=== PATIENT | female | born 1965 | race Caucasian/White ===

== ENCOUNTER 2017-04-29 11:00 | Inpatient (IN) | payer OTHER ==
[~2017-04-29] VITALS: Ht 170.2 cm; Wt 94.1 kg
--- NOTE | ~2017-04-29 | OR ---
PATIENT'S NAME: CELESTINO RIVERS [facility] AGE: 51 Y [address] ROOM: [place] [address] LOCATION: [facility] ADMIT DATE: 05/15/2017 OR/Procedure Report DISCHARGE DATE: FAMILY PHYSICIAN: Wes Cantu MD ATTENDING PHYSICIAN: RACHELE LÓPEZ SURGEON: Rachele López MD INSPECTOR BALANCE BRIDGE: Renan St PA-C DATE OF PROCEDURE: 05/15/2017 ORTHOPEDIC OPERATIVE NOTE PREOPERATIVE DIAGNOSIS: Left primary end-stage post-traumatic arthritis of the knee. POSTOPERATIVE DIAGNOSIS: Left primary end-stage post-traumatic arthritis of the knee. PROCEDURES PERFORMED: 1. Left total knee arthroplasty with computer-aided navigation. 2. Removal of deep buried hardware from proxmial tibia from previous surgery >30 years ago. ANESTHESIA: Spinal with peripheral nerve blocks. ESTIMATED BLOOD LOSS: Minimal. FLUIDS: See Anesthesia report. TOURNIQUET: Left proximal thigh at 250 mmHg. SPECIMENS: Removed hardware. COMPLICATIONS: None. DISPOSITION: Stable in PACU. COUNTS: All counts were correct. IMPLANTS: Blodgett Triathlon left total knee arthroplasty size 4 tibia, size 3 femur, size 32 asymmetric patella, size 11 polyethylene, and antibiotic Simplex bone cement. INDICATIONS: Ms. Rivers is a pleasant 51-year-old female, who underwent the noted procedures above. The risks, benefits, and alternatives pursuing a surgical intervention were discussed with the patient in detail. She elected PATIENT'S NAME: CELESTINO RIVERS [facility] AGE: 51 Y [address] ROOM: [place] [address] LOCATION: [facility] ADMIT DATE: 05/15/2017 OR/Procedure Report DISCHARGE DATE: FAMILY PHYSICIAN: Wes Cantu MD ATTENDING PHYSICIAN: RACHELE LÓPEZ to proceed with surgery as noted above. Anesthesia was consulted for their perioperative evaluation of the patient. I marked the patient's left knee indicating correct surgical site. DESCRIPTION OF PROCEDURE: The patient was brought from the holding area to the operating room. A time-out was performed. Spinal anesthesia with peripheral nerve blocks was administered. Antibiotic prophylaxis was administered. The left lower extremity was then prepped and draped in a sterile fashion. I turned my attention to the left knee. The patient had a previous surgical incision that I traced out to use for her anterior arthrotomy. An Esmarch was used to exsanguinate the limb, and the tourniquet was inflated to 250 mmHg. Using a #10 blade knife, I made incision through skin and subcutaneous tissue down to the medial capsule to the joint. I removed the anterior and posterior cruciate ligaments in the medial and lateral menisci. There were advanced degenerative changes noted in the joint. There was retained hardware at the medial aspect of the tibia of metallic staple. Using an osteotome and mallet along with a rongeur, I removed the hardware and sent for specimen. I then turned my attention to the distal femur. Using computer-aided navigation, I made my distal femoral cut. I then turned my attention to the tibia. I performed a medial soft tissue release. I then used a computer- aided navigation to make my proximal tibial cut. I measured my box alignment and it was satisfactory. I turned my attention back to the distal femur. I finished my distal femur with the cutting block using oscillating saw. I turned my attention back to the proximal tibia, sized it and drilled for, measured and placed the trial components. With the trial components in place, I took the knee through range of motion and found it to be stable. I then subsequently resurfaced the patella. I took the knee through range of motion with the patellar button in place and found the patella to track well. Range of motion of the knee was 0 to 130 degrees. All the trial componentry was removed. The knee was copiously irrigated with a normal sterile saline solution. The bony surfaces were dried and prepped. The cement was mixed, and then subsequently beginning with the tibia, I cemented the component into place. I then turned my attention to the distal femur and cemented the distal femoral component in place. I placed a size 11 trial polyethylene and found that to be stable. The knee was brought out to full extension and then the patellar button was cemented into place. After PATIENT'S NAME: CELESTINO RIVERS [facility] AGE: 51 Y [address] ROOM: [address] [address] LOCATION: [facility] ADMIT DATE: 05/15/2017 OR/Procedure Report DISCHARGE DATE: FAMILY PHYSICIAN: eWs Cantu MD ATTENDING PHYSICIAN: RACHELE LÓPEZ the cement cured, all the excess cement was removed and the knee was copiously irrigated with normal sterile saline solution again. The collaterals were stable. Range of motion of the knee was 0 to approximately 130 degrees of flexion. The capsule was approximated using a #2 Stratafix barbed suture. The subcutaneous tissue was approximated using 0 Vicryl followed by 2-0 Vicryl suture and harmeet for the skin. The tourniquet was let down, the limb reperfused well. The patient was then transferred from the operating room table onto the stretcher and brought to the recovery room in stable condition. There were no intraoperative complications noted. Of note, my PA, Renan St PA-C, played an integral role in the intraoperative care of this patient. This included preoperative positioning, intraoperative expert retraction, and closing and dressing functions. IMPRESSION: The patient is status post the noted procedures above. PLAN: The patient will be weightbearing as tolerated on the left lower extremity. She will be admitted to the hospital. Postoperative antibiotics administered per routine. Lovenox will be administered for DVT prophylaxis. Physical Therapy and Occupational Therapy will be consulted for early ambulation and prevention of deconditioning. The Hospitalist Service will manage the patient's concomitant medical comorbidities. I will continue to follow the patient closely in the postoperative period. MD SADIA HOWARD/nash /[id number] d: 05/15/172116 t: 05/19/17 1405, OPERATIVE SUMMARY
[~2017-04-29 11:00] MED LIST: TRI-SPRINTEC T1 EACH PO
[2017-05-15] MEDS ORDERED: OMEPRAZOLE40 MG PO (06:46)
[2017-05-17] MEDS ORDERED: TYLENOL EXTRA500 MG PO (10:06)
[2017-05-17] MEDS ORDERED: COLACE100 MG PO (10:06)
[2017-05-17] MEDS ORDERED: NEURONTIN300 MG PO (10:09)
[2017-05-17] MEDS ORDERED: MIRALAX17 GM PO (10:10)
[2017-05-17] MEDS ORDERED: XARELTO10 MG PO (10:12)
[2017-05-17] MEDS ORDERED: VALIUM5 MG PO (10:14)
[2017-05-17] MEDS ORDERED: ROXICODONE 5MG (5 MG PO (10:15)
[2017-05-17] MEDS ORDERED: CELEBREX200 MG PO (10:16)
== END 2017-05-17 13:30 | disposition disaster alternative care site (69) | DRG 470 ==
LOC: G3N 05-15 06:00
PROVIDERS: ADMIT Orthopaedic Surgery Adult Reconstructive Orthopaedic Surgery
DX: M17.12 Unilateral primary osteoarthritis, left knee (principal); E78.5 Hyperlipidemia, unspecified; E66.9 Obesity, unspecified; Z68.33 Body mass index [BMI] 33.0-33.9, adult; K21.9 Gastro-esophageal reflux disease without esophagitis
CPT/HCPCS: C1713; C1776; J0690; J1100; J1170; J1885; J2001; J2250; J2795; J7120

== ENCOUNTER → 2017-05-02 | Outpatient (CLI) | payer OTHER ==
[~2017-05-02] MED LIST changes: +CELEBREX200 MG PO; +COLACE100 MG PO; +MIRALAX17 GM PO; +NEURONTIN300 MG PO; +OMEPRAZOLE40 MG PO; +ROXICODONE 5MG (5 MG PO; +TYLENOL EXTRA500 MG PO; +VALIUM5 MG PO; +XARELTO10 MG PO
== END | disposition disaster alternative care site (69) ==
LOC: GNJRC 10:01
DX: Z01.812 Encounter for preprocedural laboratory examination (principal)

== ENCOUNTER → 2017-05-31 | Outpatient (CLI) | payer OTHER ==
--- NOTE | ~2017-05-31 | ENPV ---
Vascular Lower Extremities DVT Study Procedure Demographics Patient Name CELESTINO RIVERS Date of Study 05/31/2017 Patient Number [id number] Gender Female Date of 1965 Age 51 Visit Number [id number] Height Accession Number [id number] Weight Room Number BSA BMI Referring Juan Sandoval Md Interpreting Chas Springer MD Physician Physician Physician Ordering Physician Maciel SENA [employer] Manager Medical Billing Coordinator Tre Yousif BS, RT Conclusions Summary No evidence of deep vein thrombosis or superficial thrombophlebitis in the left lower extremity . Procedure Type of Study: Veins:Lower Extremities DVT Study, Lower Extremity Left. Indications for Study:Swelling of Limb. Patient Status:Routine. Study Location:Vascular Lab. Technical Quality:Adequate visualization. Velocities are measured in cm/s ; Diameters are measured in cm Right Lower Extremities DVT Study Measurements Right 2D and Doppler Measurements + + + + +------+------+ + !Location !Visualized!Compressibility!Thrombosis!Signal!Reflux!Reflux ! ! ! ! ! ! ! !(sec) ! + + + + +------+------+ + !Common !Yes !Yes !None !Phasic!No ! ! !Femoral ! ! ! ! ! ! ! + + + + +------+------+ + Left Lower Extremities DVT Study Measurements Left 2D and Doppler Measurements + + + + +------+------+ + !Location !Visualized!Compressibility!Thrombosis!Signal!Reflux!Reflux ! ! ! ! ! ! ! !(sec) ! + + + + +------+------+ + !GSV Thigh !Yes !Yes !None !Phasic!No ! ! + + + + +------+------+ + !Common !Yes !Yes !None !Phasic!No ! ! !Femoral ! ! ! ! ! ! ! + + + + +------+------+ + !Prox !Yes !Yes !None !Phasic!No ! ! !Femoral ! ! ! ! ! ! ! + + + + +------+------+ + !Mid Femoral!Yes !Yes !None !Phasic!No ! ! + + + + +------+------+ + !Dist !Yes !Yes !None !Phasic!No ! ! !Femoral ! ! ! ! ! ! ! + + + + +------+------+ + !Popliteal !Yes !Yes !None !Phasic!No ! ! + + + + +------+------+ + !Gastroc !Yes !Yes !None !Phasic!No ! ! + + + + +------+------+ + !PTV !Yes !Yes !None !Phasic!No ! ! + + + + +------+------+ + !Peroneal !Yes !Yes !None !Phasic!No ! ! + + + + +------+------+ + Signature dtt: CHEYANNE BURDEN dtkarli: 05/31/17 1521 Physician Self Edit
== END | disposition disaster alternative care site (69) ==
LOC: GCAR 14:59
DX: M79.662 Pain in left lower leg (principal)